=== PATIENT | female | born 2000 | race Caucasian/White ===

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

== ENCOUNTER 2021-12-25 16:44 | Inpatient (IN) | payer MEDICAID ==
[2021-12-25] MEDS ORDERED: Carboprost Tromethamine 250 MCG/1 ML Amp IM PRN (17:56)
[2021-12-25] MEDS ORDERED: Sodium Chloride 0.9% 20 ML SDV IV PRN (17:56)
[2021-12-25] MEDS ORDERED: Tranexamic Acid 1,000 MG in Sodium Chloride 0.9% 100 ML IV PRN (17:56)
[2021-12-25] MEDS ORDERED: Sodium Chloride 0.9% 10 ML Syringe FLUSH PRN (17:56)
[2021-12-25] MEDS ORDERED: Water For Irrigation,Sterile 1,000 ML Container IRR PRN (17:56)
[2021-12-25] MEDS ORDERED: Sodium Chloride 0.9% 2.5 ML Syringe FLUSH PRN (17:56)
[2021-12-25] MEDS ORDERED: Methylergonovine 0.2 MG/1 ML Amp IM PRN (17:56)
[2021-12-25] MEDS ORDERED: Butorphanol 1 MG/ML SDV IVPUSH PRN (17:56)
[2021-12-25] MEDS ORDERED: Misoprostol 200 MCG Tab PO PRN (17:56)
[2021-12-25] MEDS ORDERED: Lidocaine 1% 50 ML MDV INJECT PRN (17:56)
[2021-12-25] MEDS ORDERED: Oxytocin/0.9 % Sodium Chloride 30 UNIT/500 ML BAG IV SCH (18:00)
[2021-12-25] MEDS ORDERED: Lactated Ringers 1,000 ML IV SCH (18:00)
[2021-12-25] MEDS ORDERED: Docusate Sodium 100 MG Cap PO PRN (20:18)
[2021-12-25] MEDS ORDERED: Benzocaine/Menthol 20%-0.5% Spray 78 GM Cannister TOP PRN (20:18)
[2021-12-25] MEDS ORDERED: Acetaminophen 500 MG Tab PO PRN (20:18)
[2021-12-25] MEDS ORDERED: Bisacodyl 10 MG Supp RECTAL PRN (20:18)
[2021-12-25] MEDS ORDERED: Ibuprofen 400 MG Tab PO PRN (20:18)
[2021-12-25] MEDS ORDERED: ePHEDrine 50 MG/ML SDV IVPUSH PRN ×2 (20:18)
[2021-12-25] MEDS ORDERED: Witch Hazel Medicated Pads 40/Jar TOP PRN (20:18)
[2021-12-25] MEDS ORDERED: Lanolin 100% Cream 7 GM Tube TOP PRN (20:18)
[2021-12-25] MEDS ORDERED: Ropivacaine HCl/PF 400 MG in Premix Bag 1 BAG EPIDUR SCH (20:30)
[2021-12-25] MEDS ORDERED: Phenylephrine HCl In 0.9% NaCl 1 MG/10 ML Vial IVPUSH SCH (20:30)
[2021-12-25] MEDS: Ibuprofen 800 MG Tab PO PRN (20:38)
[2021-12-25] MEDS: Acetaminophen 500 MG Tab PO PRN (20:40)
[2021-12-26] MEDS: Ibuprofen 800 MG Tab PO PRN ×2 (07:49→17:25)
[2021-12-26] MEDS: Acetaminophen 500 MG Tab PO PRN (19:48)
== END 2021-12-26 22:40 | disposition home or self-care (01) | DRG 807 ==
LOC: MW.OBCHECK 16:44 → MW.OB 16:44 → MW.OBCHECK 19:00 → MW.OB 19:01 → OBSVTOIN 19:52 → MW.OB 22:30
PROVIDERS: ADMIT Obstetrics & Gynecology Obstetrics; ATTEND Obstetrics & Gynecology Obstetrics
PROC: 10E0XZZ Delivery of Products of Conception, External Approach (ICD-10-PCS; principal; 2021-12-25)
DX: O24.92 Unspecified diabetes mellitus in childbirth (principal); Z37.0 Single live birth; Z3A.38 38 weeks gestation of pregnancy; Z20.822 Contact with and (suspected) exposure to COVID-19
CPT/HCPCS: 36415; 59025; 59409; 85014; 85018; 85027; 86592; 86850; 86900; 86901; A9270-GY; J2590; U0002